=== PATIENT | female | born 1945 | race Caucasian/White ===

== ENCOUNTER → 2017-09-07 | Outpatient (CLI) | payer MEDICARE, OTHER ==
[~2017-09-07] MED LIST: BUPR150T6 PO; DOCU100T3 PO; MONT10TA9 PO; RANI150T4 PO; VALS160T3 PO
== END | disposition home or self-care (01) ==
LOC: CFH 07:45
PROVIDERS: ATTEND Family Medicine
DX: J32.0 Chronic maxillary sinusitis (principal); J32.2 Chronic ethmoidal sinusitis; R22.0 Localized swelling, mass and lump, head; R27.0 Ataxia, unspecified
CPT/HCPCS: 70450